=== PATIENT | male | born 1980 | race Caucasian/White ===

== ENCOUNTER 2021-02-22 21:47 | Emergency (ER) | payer OTHER ==
[~2021-02-22 21:47] MED LIST: TAMIFLU75 MG PO; ZYVOX600 MG PO
[2021-02-22 22:58] LABS: HEMOGLOBIN 13.8 gm/dl (14.0-17.5); RED BLOOD COUNT 4.43 M/UL (4.20-5.50); WHITE BLOOD COUNT 8.2 K/UL (4.5-11.0)
[2021-02-22 23:30] LABS: BUN/CREATININE RATIO 13 (0-10)
== END 2021-02-23 01:00 | disposition home or self-care (01) ==
LOC: ER1 21:47
PROVIDERS: Physician Assistant
DX: R07.9 Chest pain, unspecified (principal); F17.210 Nicotine dependence, cigarettes, uncomplicated
CPT/HCPCS: 71045; 80053; 82550; 82553; 83874; 83880; 84484; 85025; 85379; 85610; 85730; 93005; 99285

== ENCOUNTER 2021-02-25 17:00 | Emergency (ER) | payer OTHER ==
[2021-02-25 17:38] LABS: HEMOGLOBIN 15.3 gm/dl (14.0-17.5); RED BLOOD COUNT 4.97 M/UL (4.20-5.50); WHITE BLOOD COUNT 5.2 K/UL (4.5-11.0)
[2021-02-25 18:04] LABS: BUN/CREATININE RATIO 7 (0-10)
[2021-02-25] MEDS ORDERED: IBUPROFEN600 MG PO (21:04)
== END 2021-02-25 21:11 | disposition home or self-care (01) ==
LOC: ER1 17:00
PROVIDERS: Family Medicine; Physician Assistant Medical
DX: R50.9 Fever, unspecified (principal); R07.9 Chest pain, unspecified; F17.210 Nicotine dependence, cigarettes, uncomplicated; Z20.822 Contact with and (suspected) exposure to COVID-19
CPT/HCPCS: 71046; 80053; 80307; 81001; 82550; 82553; 83874; 84484; 85025; 93005; 99285; U0002

== ENCOUNTER 2021-12-26 20:32 | Emergency (ER) | payer OTHER ==
[~2021-12-26 20:32] MED LIST changes: +IBUPROFEN600 MG PO
[2021-12-26] MEDS ORDERED: AMOXICILLIN875 MG PO (20:42)
[2021-12-26] MEDS ORDERED: IBUPROFEN800 MG PO (20:42)
== END 2021-12-26 21:05 | disposition home or self-care (01) ==
LOC: ER1 20:32
DX: K02.9 Dental caries, unspecified (principal); J02.9 Acute pharyngitis, unspecified; L55.9 Sunburn, unspecified; F17.290 Nicotine dependence, other tobacco product, uncomplicated
CPT/HCPCS: 99282